=== PATIENT | male | born 1995 | race Caucasian/White ===

== ENCOUNTER → 2018-07-20 15:00 | Outpatient (CLI) | payer OTHER, MEDICAID, SELFPAY ==
[2018-07-20 16:59] LABS: Urine N gonorrhoeae NOT DETECTED
[2018-07-20 17:49] LABS: Urine Chlamydia DETECTED
== END ==
PROVIDERS: PCP Family Medicine; Visit Provider Internal Medicine
DX: A56.01 Chlamydial cystitis and urethritis (principal)
CPT/HCPCS: 87491; 87591

== ENCOUNTER → 2019-11-16 12:23 | Outpatient (CLI) | payer OTHER, MEDICAID, SELFPAY ==
[2019-11-16 13:32] LABS: Add Manual Diff / Slide Review NO; Basophils Absolute Auto 100 /uL (0-100); Basophils Percent Auto 1.4 % (0-2); Eosinophils Absolute Auto 500 /uL (0-450); Eosinophils Percent Auto 7.7 % (2-4); Hematocrit 48.1 % (41-53); Hemoglobin 16.9 g/dL (13.5-17.5); Lymphocytes Absolute Auto 1700 /uL (1100-4500); Lymphocytes Percent Auto 28.5 % (25-40); Mean Corpuscular HGB Conc 35.1 % (30-36); Mean Corpuscular Hemoglobin 30.7 PG (26-34); Mean Corpuscular Volume 87.4 fL (80-100); Monocytes Absolute Auto 500 /uL (0-900); Monocytes Percent Auto 8.2 % (3-14); Neutrophils Absolute Auto 3200 /uL (1500-7000); Neutrophils Percent Auto 54.2 % (50-75); Platelet Count 234 X10^3/uL (150-400); Red Cell Distribution Width 12.5 % (11.6-14.8); White Blood Cell Count 5.9 X10^3/uL (4.5-11.0)
[2019-11-16 13:57] LABS: Alanine Aminotransferase 31 IU/L (<50); Albumin 5.3 g/dL (3.5-5.0); Albumin Globulin Ratio 1.7 (1.0-2.8); Alkaline Phosphatase 60 U/L (38-126); Aspartate Aminotransferase 27 IU/L (17-59); BUN Creatinine Ratio 18.8 (6-22); Bilirubin Total 0.9 mg/dL (0.2-1.3); Blood Urea Nitrogen 15 mg/dL (9-20); Calcium 9.6 mg/dL (8.4-10.2); Carbon Dioxide 28 mmol/L (22-32); Chloride 102 mmol/L (98-107); Estimated Glomerular Filt Rate > 60.0 mL/min (>60); Globulin 3.1 g/dL (1.7-4.1); Glucose 92 mg/dL (70-100); HEMOLYSIS < 15 (0-50); Sodium 140 mmol/L (137-145); Total Protein 8.4 g/dL (6.3-8.2)
[2019-11-16 14:12] LABS: HEMOLYSIS < 15 (0-50); Iron 220 ug/dL (49-181)
[2019-11-16 14:23] LABS: Percent Iron Saturation 71 % (20-50); Total Iron Binding Capacity 309 ug/dL (261-462); Transferrin 254 mg/dL (206-381)
[2019-11-16 14:32] LABS: Ferritin 62.3 ng/mL (17.9-464)
[2019-11-16 14:42] LABS: TSH w/ Reflex to FT4 0.92 uIU/mL (0.47-4.68)
[2019-11-16 14:45] LABS: Vitamin B12 692 pg/mL (239-931)
[2019-11-17 12:14] LABS: C-Reactive Protein Quant < 0.5 mg/dL (<1.0)
[2019-11-17 12:45] LABS: HIV 1 & 2 Ab/Ag 4th Gen Combo NEGATIVE (NEGATIVE)
== END ==
PROVIDERS: Visit Provider Nurse Practitioner Family
DX: R53.83 Other fatigue (principal)
CPT/HCPCS: 36415; 80053; 82607; 82728; 83540; 83550; 84443; 85025

== ENCOUNTER 2019-11-16 13:06 | Emergency (ER) | payer OTHER, MEDICAID, SELFPAY ==
[2019-11-16 13:09] VITALS: BP 77/47; PULSE 68; RESP 18; TEMP 36.7; O2SAT 98
[2019-11-16] MEDS: SODIUM CHLORIDE 0.9% 1,000 ML 1000 ML IV (13:24)
[2019-11-16 13:36] VITALS: BP 102/66; PULSE 61; RESP 18; O2SAT 99
[2019-11-16] MEDS: ONDANSETRON 4 MG/2 ML INJ IV (13:40)
--- NOTE | 2019-11-16 14:07 | ED_ITS ---
HPI - Syncope <ZAHIRA Ricardo - Last Filed: 11/16/19 23:08> General Chief Complaint: Syncope Stated Complaint: seizure, vomited Time Seen by Provider: 11/16/19 13:28 Source: patient Mode of arrival: Wheelchair Limitations: no limitations History of Present Illness HPI narrative: This is a 24-year-old male, nonsmoker, who presents to ED from hospital lab with syncopal episode. Patient reports he was getting his blood drawn today which was ordered by the clinic, patient fell his visions became black few seconds and and felt like some things coming over prior to syncopal episode for about 10 seconds. According to the dental laboratory technician, patient had shakes. Patient reports it took him a few minutes for him to become fully aroused from this. Patient reports similar episode happened about 8-10 years ago when he was getting his blood drawn but he was doing well after this up until today with blood draws. Patient reports some nausea and mild mid abdominal pain. Patient was getting his blood drawn to follow up on weight loss of 5-10 lb over 3 weeks, frequent bruising and mild fever and he was fasting for this. Patient has a history of eosinophilic esophagitis and had several EGDs in the past. Patient denies using recreational drugs or drinking alcohol. Patient reports now he feels improved. Patient denies incontinence of stool or urine, vision change, or headaches. Related Data Previous Rx's Medication Instructions Recorded mupirocin 2 % topical ointment 1 applictn TOP BID #30 gram 11/15/19 albuterol sulfate 90 mcg/actuation 2 puff INHALATION Q4-6H PRN #18 11/18/19 aerosol inhaler gram Allergies Allergy/AdvReac Type Severity Reaction Status Date / Time No Known Drug Allergies Allergy Verified 11/15/19 14:26 Review of Systems <ZAHIRA Ricardo - Last Filed: 11/16/19 23:08> Review of Systems Narrative: General: Reports mild fever, fatigue, malaise. Denies chills, sweats. HEENT: Denies sinus pain, ear pain, sore throat, difficulty swallowing, dizziness. Respiratory: Denies dyspnea, cough, wheezing, hemoptysis, sputum. Cardiovascular: Denies chest pain, palpitations, orthopnea, edema. Gastrointestinal: Reports nausea and mild mid abdominal pain. Denies vomiting, diarrhea, constipation, melena. : Denies dysuria, frequency, incontinence, hematuria, urinary retention. Musculoskeletal: Denies weakness, joint pain or bony pain. Skin: Reports bruises. Denies rash, skin lesions, or other. Neurologic: Reports passing out during lab draw for 10 seconds witnessed. Denies weakness, headache, numbness, change in speech, confusion, incoordination. Psychiatric: No concerning psychosocial issues. 12-point review of systems is negative except for those stated above. Patient History <ZAHIRA Ricardo - Last Filed: 11/16/19 23:08> Medical History Eosinophilic esophagitis (Acute) Surgical History History of esophagogastroduodenoscopy (EGD) (Acute) Social History Smoking Status: Never smoker Smoking Status: Never smoker alcohol intake frequency: 0-2 drinks per day Substance Use Type: does not use Exam <ZAHIRA Ricardo - Last Filed: 11/16/19 23:08> Narrative Exam Narrative: GEN: Alert, oriented x 3, well appearing and nourished, and in no acute distress. Head: Normal cephalic, atraumatic, no step-offs or crepitus. No scalp or temporal tenderness, palpable mass or rash. EYES: Pupils are equal, round, and reactive to light and accommodation. Extraocular muscles are intact bilaterally. There is no subconjunctival hemorrhage, exudate and sclera non-icteric. ENT: Bilateral auditory canals and tympanic membranes clear, no hemotympanum. Hearing grossly intact. Nose without bleeding, purulent discharge or deviation. Facial sinuses nontender to palpate. Mucous membrane moist, no mucosal lesion. Throat without erythema, tonsillar hypertrophy or exudate. Uvula in midline, airway patent. Neck: Trachea in midline without step-offs. No JVD, non-tender without lymphadenopathy. No masses or thyroid megaly. Supple, non-tender and no meningeal signs. CARDIAC: Normal regular rate and rhythm without murmurs, gallops, or rubs. No chest wall tenderness. No peripheral edema, cyanosis or pallor. Capillary refi ll is less than 2 seconds. RESPIRATORY: Lungs are clear to auscultate bilaterally. No cough, wheezes, rales, or rhonchi. No stridor, respiratory distress, increase work of breathing, or accessary muscle used. ABD: Mild tenderness to palpate in mid abdomen. Abdomen soft and non- distended. No guarding or rebound tenderness to palpate. Bowel sounds are normal in all 4 quadrants. There is no palpable masses or organomegaly. EXT: Full painless ROM of all extremities with no loss of sensation, strength, effusion or edema. SKIN: Warm, dry, normal color for patient. No erythema, lesions or rash over visible areas. BACK: Nontender without deformity or crepitance. No flank tenderness. NEUROLOGICAL: Alert and oriented to place, time and person. Sensation and motor function intact bilaterally. No facial droops, dysphasia. CN II-XII intact. Strength and sensation symmetric and intact throughout. PSYCHIATRIC: Good judgement and reason, without hallucinations, abnormal affect or abnormal behaviors during the examination. Initial Vital Signs Initial Vital Signs: Vital Signs Temperature 98.1 F 11/16/19 13:09 Pulse Rate 68 11/16/19 13:09 Respiratory Rate 18 11/16/19 13:09 Blood Pressure 77/47 L 11/16/19 13:09 Pulse Oximetry 98 11/16/19 13:09 <Mariann Salcedo DO - Last Filed: 11/21/19 07:06> Initial Vital Signs Initial Vital Signs: Vital Signs Temperature 98.1 F 11/16/19 13:09 Pulse Rate 68 11/16/19 13:09 Respiratory Rate 18 11/16/19 13:09 Blood Pressure 77/47 L 11/16/19 13:09 Pulse Oximetry 98 11/16/19 13:09 Scores <ZAHIRA Ricardo - Last Filed: 11/16/19 23:08> GCS [place] coma scale eye opening: Spontaneous [place] coma scale verbal response: Orientated [place] coma scale motor response: Obey commands [place] coma scale total score: 15 Course <ZAHIRA Ricardo - Last Filed: 11/16/19 23:08> Orders Ordered: Discontinued Medications Albuterol (Ventolin) 2.5 mg INH NOW ONE Stop: 11/16/19 14:29 Last Admin: 11/16/19 14:31 Dose: 2.5 mg Documented by: LA Sodium Chloride (Normal Saline 0.9%) 1,000 mls @ 1,000 mls/hr IV BOLUS ONE Stop: 11/16/19 14:15 Last Infusion: 11/16/19 14:24 Dose: 0 mls/hr Documented by: Admin: 11/16/19 13:24 Dose: 1,000 mls/hr Documented by: THIERRY Ondansetron HCl (Zofran) 4 mg IV NOW ONE Stop: 11/16/19 13:36 Last Admin: 11/16/19 13:40 Dose: 4 mg Documented by: THIERRY Vital Signs Vital signs: Vital Signs - 8 hr 11/16/19 15:00 Pulse Rate 65 Respiratory Rate 17 Blood Pressure [Right Arm] 121/64 Pulse Oximetry 98 <Mariann Salcedo DO - Last Filed: 11/21/19 07:06> Orders Ordered: Discontinued Medications Albuterol (Ventolin) 2.5 mg INH NOW ONE Stop: 11/16/19 14:29 Last Admin: 11/16/19 14:31 Dose: 2.5 mg Documented by: [place] Sodium Chloride (Normal Saline 0.9%) 1,000 mls @ 1,000 mls/hr IV BOLUS ONE Stop: 11/16/19 14:15 Last Infusion: 11/16/19 14:24 Dose: 0 mls/hr Documented by: Admin: 11/16/19 13:24 Dose: 1,000 mls/hr Documented by: THIERRY Ondansetron HCl (Zofran) 4 mg IV NOW ONE Stop: 11/16/19 13:36 Last Admin: 11/16/19 13:40 Dose: 4 mg Documented by: THIERRY Vital Signs Vital signs: Vital Signs - 8 hr 11/16/19 15:00 Pulse Rate 65 Respiratory Rate 17 Blood Pressure [Right Arm] 121/64 Pulse Oximetry 98 MDM - Syncope <ZAHIRA Ricardo - Last Filed: 11/16/19 23:08> Differential Diagnosis Differential diagnosis: Likely syncope due to orthostatic hypotension, vasovagal syncope and other (Seizure) Medical Records Attestation: I reviewed the patient's medical records. Lab Data Attestation: I reviewed the patient's lab results. ECG Data Attestation: I personally reviewed and interpreted this ECG as follows: Prior ECG tracings: not available for review Interpretation: Sinus rhythm rate at 61. Normal [place]. No ST elevation or depression. PA int 154, QRS dur 104, QTc 109 MDM Narrative Medical decision making narrative: This is a 24-year-old male who presents to ED after he had syncopal episode at lab after he was getting blood drawn. Patient reports his vision changes to black prior he was passing out. No additional lab test was added but when reviewed that was ordered by PCP, CBC and chemistries were unremarkable except eosinophil of 7.7. Patient has history of eosinophilic esophagitis. Patient reports has not been feeling well last couple of weeks and several blood tests were ordered by the PCP. EKG was normal sinus rhythm without ST elevation or depression. Initially patient's blood pressure was hypotensive as 77/47 with pulse rate of 68 and pale in his appearance. Patient was hydrated with normal saline 1 L and when patient was re-evaluated patient reports feeling much better and patient's skin color change to pink with normal tensive. Initially, prolactin was ordered to evaluate whether syncope episode was related to seizure but this has been canceled after discussing with patient in detail, his symptoms are likely due to vasovagal syncopal episode. Patient also requesting a refill for albuterol and patient has known asthma history and a nebulizer treatment due to patient's chest has been tight and I've been able to take full deep breaths. Albuterol inhaler prescription has been provided and patient reports breathing has been is here. Patient was able to tolerate fluids before discharged to home. Return precautions were discussed with the patient and advised to follow up with PCP as scheduled. Discharge Plan Departure Patient Disposition: Home Clinical Impression: History of asthma Syncopal episodes Qualifiers: Syncope type: vasovagal syncope Qualified Code(s): R55 - Syncope and collapse Discharge Date/Time: 11/16/19 15:47 Activity Restrictions/Additional Instructions: You have been diagnosed with [syncopal episode likely from vasovagal. Your blood count and chemistry appears to be unremarkable. EKG looks normal. You were hydrated with IV fluid and IV medication of Zofran and were able to tolerate fluids without vomiting and you felt improved.]. What to do: *Take your medications as directed. Continue with her current medications and I have prescribed albuterol your outpatient medications and has transmitted to [facility]. *Follow up with your primary care provider in 2-3 days, call for an appointment. Let them know you were seen in the ED and that we asked you to be seen in follow up. *Return to ED if you have any new, worsening, or concerning symptoms, such as [severe headache, vision change, weakness to extremities, chest pain, breathing difficulty, unable to tolerate fluids, or any acute concerns]. Prescriptions: No Action albuterol sulfate 90 mcg/actuation HFA aerosol inhaler 2 puff INHALATION Q4-6H PRN (Reason: bronchospasm) Qty: 18 RF: 3 mupirocin 2 % ointment 1 applictn TOP BID Qty: 30 RF: 0 Referrals: Joan Pleaez ARNP [[employer]] -
[2019-11-16 14:23] VITALS: BP 118/72; PULSE 80; RESP 18; O2SAT 100
[2019-11-16 14:31] VITALS: PULSE 70; RESP 14; O2SAT 98
[2019-11-16] MEDS: ALBUTEROL 2.5 MG/3 ML NEB (ADULT) INH (14:31)
[2019-11-16 14:40] VITALS: BP 114/78
[2019-11-16 15:00] VITALS: BP 121/64; PULSE 65; RESP 17; O2SAT 98
== END 2019-11-16 15:47 | disposition home or self-care (01) ==
PROVIDERS: Emergency Provider Nurse Practitioner Family
DX: R55 Syncope and collapse (principal); R53.83 Other fatigue
CPT/HCPCS: 36415; 80053; 82607; 82728; 83540; 83550; 84443; 85025; 86140; 87389; 93005; 94640; 96361; 96374; 99284; J2405; J7613

== ENCOUNTER → 2019-12-27 14:48 | Outpatient (CLI) | payer OTHER, MEDICAID, SELFPAY ==
[2019-12-27 16:44] LABS: C-Reactive Protein Quant < 0.5 mg/dL (<1.0)
[2019-12-27 16:55] LABS: Erythrocyte Sedimentation Rate 1 MM/HR (0-15)
[2019-12-28 20:13] LABS: TSH w/ Reflex to FT4 1.02 uIU/mL (0.47-4.68)
[2019-12-29 19:45] LABS: RPR Screen Nonreactive (Nonreactive)
[2019-12-30 09:26] LABS: ANA Screen, IFA NEGATIVE (NEGATIVE)
== END ==
PROVIDERS: PCP Nurse Practitioner Family; Referring Provider Specialist; Visit Provider Specialist
DX: Z20.2 Contact with and (suspected) exposure to infections with a predominantly sexual mode of transmission (principal); R23.3 Spontaneous ecchymoses; R53.83 Other fatigue
CPT/HCPCS: 36415; 84443; 85651; 86038; 86140; 86592

== ENCOUNTER → 2020-08-13 12:26 | Outpatient (CLI) | payer OTHER, MEDICAID, SELFPAY ==
--- NOTE | 2020-08-13 12:27 | DI.US.S_ITS ---
PROCEDURE: US SCROTUM INDICATIONS: Scrotal mass - right TECHNIQUE: Real-time scanning was performed of the scrotum and testicles, with image documentation. Color and pulse Doppler interrogation was performed of both testicles. COMPARISON: None. FINDINGS: Right: Testicle is normal in size at 4.9 x 2.1 x 3.0 cm, and homogenous in echotexture. There is a simple cyst in the epididymal head measuring 1.9 x 1.4 x 2.2 cm with a thin wall and no internal septations or nodularity. Epididymis is otherwise normal in overall size and morphology. No hydrocele or varicoceles. Overlying scrotal skin is normal in thickness. Left: Testicle is normal in size at 4.7 x 2.1 x 2.9 cm, and homogeneous in echotexture. Epididymis is normal in overall size and morphology. No hydrocele or varicoceles. Overlying scrotal skin is normal in thickness. Doppler: Color and pulse Doppler demonstrate normal and symmetric arterial flow in both testicles. IMPRESSION: 1. 2.2 cm right epididymal head cyst corresponds to the patient's palpable abnormality in the right. 2. Otherwise normal scrotal ultrasound. Dictated by: Abigail Rivera M.D. on 08/13/2020 at 16:18 Approved by: Abigail Rivera M.D. on 08/13/2020 at 16:20
== END ==
PROVIDERS: PCP Student in an Organized Health Care Education/Training Program; Referring Provider Student in an Organized Health Care Education/Training Program; Visit Provider Student in an Organized Health Care Education/Training Program
DX: N50.3 Cyst of epididymis (principal)
CPT/HCPCS: 76870

== ENCOUNTER → 2020-10-25 13:29 | Outpatient (CLI) | payer OTHER, MEDICAID, SELFPAY ==
[2020-10-25 15:15] LABS: Urine N gonorrhoeae NOT DETECTED
[2020-10-25 15:21] LABS: Urine Chlamydia NOT DETECTED
== END ==
PROVIDERS: PCP Student in an Organized Health Care Education/Training Program; Visit Provider Physician Assistant
DX: R36.9 Urethral discharge, unspecified (principal)
CPT/HCPCS: 87491; 87591

== ENCOUNTER → 2021-04-19 14:34 | Outpatient (CLI) | payer OTHER, MEDICAID, SELFPAY ==
[2021-04-19] MEDS: COVID-19 VACC, Ad26(JANSSEN)/PF 0.5 ML IM (14:40)
== END ==
PROVIDERS: PCP Student in an Organized Health Care Education/Training Program; Visit Provider Internal Medicine
DX: Z23 Encounter for immunization (principal)
CPT/HCPCS: 0031A; 91303

== ENCOUNTER → 2023-01-15 08:55 | Outpatient (CLI) | payer OTHER, MEDICAID, SELFPAY ==
[2023-01-15 10:11] LABS: Add Manual Diff / Slide Review NO; Basophils Absolute Auto 100 /uL (0-100); Basophils Percent Auto 1.1 % (0-2); Eosinophils Absolute Auto 400 /uL (0-450); Eosinophils Percent Auto 6.7 % (2-4); Hemoglobin 16.1 g/dL (13.5-17.5); Lymphocytes Absolute Auto 2000 /uL (1100-4500); Lymphocytes Percent Auto 32.6 % (25-40); Mean Corpuscular HGB Conc 33.5 % (30-36); Mean Corpuscular Hemoglobin 29.3 PG (26-34); Mean Corpuscular Volume 87.6 fL (80-100); Monocytes Absolute Auto 500 /uL (0-900); Monocytes Percent Auto 8.2 % (3-14); Neutrophils Absolute Auto 3200 /uL (1500-7000); Neutrophils Percent Auto 51.4 % (50-75); Platelet Count 252 X10^3/uL (150-400); Red Blood Cell Count 5.47 X10^6/uL (4.5-5.9); Red Cell Distribution Width 12.7 % (11.6-14.8); White Blood Cell Count 6.2 X10^3/uL (4.5-11.0)
[2023-01-15 10:27] LABS: Alanine Aminotransferase 68 IU/L (<50); Albumin 4.9 g/dL (3.5-5.0); Albumin Globulin Ratio 1.6 (1.0-2.8); Alkaline Phosphatase 63 U/L (38-126); Aspartate Aminotransferase 33 IU/L (17-59); BUN Creatinine Ratio 16.9 (6-22); Bilirubin Total 0.6 mg/dL (0.2-1.3); Blood Urea Nitrogen 13 mg/dL (9-20); Calcium 9.5 mg/dL (8.4-10.2); Carbon Dioxide 28 mmol/L (22-32); Chloride 102 mmol/L (98-107); Estimated Glomerular Filt Rate > 60 mL/min (>60); Glucose 96 mg/dL (70-100); HEMOLYSIS < 15 (0-50); Potassium 4.1 mmol/L (3.4-5.1); Sodium 140 mmol/L (137-145); Total Protein 7.9 g/dL (6.3-8.2)
[2023-01-15 10:55] LABS: Hemoglobin A1C% w Est Avg Glu 5.1 % (4.0-6.0)
[2023-01-15 10:58] LABS: TSH w/ Reflex to FT4 1.69 uIU/mL (0.47-4.68)
[2023-01-15 11:00] LABS: Testosterone 492 ng/dL (132-813)
[2023-01-15 11:16] LABS: Vitamin B12 624 pg/mL (239-931)
[2023-01-15 18:02] LABS: Hep C Virus Ab w/Reflex Quant NEGATIVE s/c (NEGATIVE)
== END ==
PROVIDERS: PCP Student in an Organized Health Care Education/Training Program; Referring Provider Student in an Organized Health Care Education/Training Program; Visit Provider Student in an Organized Health Care Education/Training Program
DX: F41.8 Other specified anxiety disorders (principal); R29.898 Other symptoms and signs involving the musculoskeletal system; R35.89 Other polyuria; R53.83 Other fatigue; R68.82 Decreased libido; Z11.59 Encounter for screening for other viral diseases
CPT/HCPCS: 36415; 80053; 82607; 83036; 84403; 84443; 85025; 86803

== ENCOUNTER → 2023-07-20 12:42 | Outpatient (CLI) | payer OTHER, MEDICAID, SELFPAY ==
[2023-07-20 14:35] LABS: Alanine Aminotransferase 67 IU/L (<50); Albumin 4.8 g/dL (3.5-5.0); Albumin Globulin Ratio 1.5 (1.0-2.8); Alkaline Phosphatase 62 U/L (38-126); Aspartate Aminotransferase 34 IU/L (17-59); BUN Creatinine Ratio 12.5 (6-22); Bilirubin Total 0.6 mg/dL (0.2-1.3); Blood Urea Nitrogen 10 mg/dL (9-20); Calcium 9.8 mg/dL (8.4-10.2); Carbon Dioxide 28 mmol/L (22-32); Chloride 101 mmol/L (98-107); Cholesterol 147 mg/dL (140-199); Estimated Glomerular Filt Rate > 60 mL/min (>60); Globulin 3.1 g/dL (1.7-4.1); Glucose 97 mg/dL (70-100); HDL Cholesterol 44 mg/dL (40-60); HEMOLYSIS < 15 (0-50); LDL Cholesterol Calculated 89 mg/dL (<100); Potassium 4.4 mmol/L (3.4-5.1); Sodium 140 mmol/L (137-145); Total Protein 7.9 g/dL (6.3-8.2); Triglycerides 70 mg/dL (35-150)
[2023-07-20 15:38] LABS: Creatinine Urine Random 131.7 mg/dL
[2023-07-20 15:42] LABS: Microalbumi Creatinin Ratio Ur 6.8 ug/mg CR (<30); Microalbumin Urine Random 0.9 mg/dL (0-1.6)
== END ==
PROVIDERS: PCP Student in an Organized Health Care Education/Training Program; Referring Provider Family Medicine; Visit Provider Family Medicine
DX: F41.8 Other specified anxiety disorders (principal); R35.89 Other polyuria; R74.8 Abnormal levels of other serum enzymes; Z13.220 Encounter for screening for lipoid disorders; Z79.899 Other long term (current) drug therapy
CPT/HCPCS: 36415; 80053; 80061; 82043; 82570

== ENCOUNTER → 2025-10-26 08:17 | Outpatient (CLI) | payer OTHER, SELFPAY ==
[2025-10-26 09:51] LABS: Influenza A - CEPHEID Flu A NEGATIVE (NEGATIVE); Influenza B - CEPHEID Flu B NEGATIVE (NEGATIVE)
[2025-10-26 09:52] LABS: COVID-19 CEPHEID 4-PLEX PCR Negative (Negative)
== END ==
PROVIDERS: PCP Family Medicine; Visit Provider Registered Nurse
DX: J02.9 Acute pharyngitis, unspecified (principal)
CPT/HCPCS: 87070; 87637